=== PATIENT | male | born 1995 | race Caucasian/White ===

== ENCOUNTER 2017-02-26 01:19 | Emergency (ER) | payer SELFPAY ==
[~2017-02-26] VITALS: Ht 180.3 cm; Wt 68.0 kg
[2017-02-26 01:22] VITALS: BP 96/50
[2017-02-26 01:28] VITALS: BP 96/50
--- NOTE | 2017-02-26 01:30 | NUR ---
PATIENT LEFT WITHOUT BEING SEEN BY DR. MALLORY. NO FURTHER CARE PROVIDED FOR PATIENT.
== END 2017-02-26 01:30 | disposition left against medical advice (07) ==
LOC: EDBD 01:19 → MED 01:19
DX: F41.9 Anxiety disorder, unspecified (principal); Z53.21 Procedure and treatment not carried out due to patient leaving prior to being seen by health care provider